=== PATIENT | female | born 1975 | race American Indian/Alaskan Native ===

== ENCOUNTER 2017-12-20 14:31 | Emergency (ER) | payer SELFPAY ==
--- NOTE | 2017-12-20 17:22 | Emergency Department Report ---
Blank Doc - Documentation Documentation: Patient is a 42-year-old [place] female with no known past medical history who is complaining of 3 weeks of joint swelling. Patient states that she initially has some swelling in her bilateral knees however this is resolved now she has swelling and edema to the left hand and pain and swelling to the right shoulder. Patient has decreased range of motion secondary to pain. Patient denies any trauma or fever at this time. Patient will have electrolytes done as well as CBC and patient will be reassessed by of a SUSAN
[2017-12-20 18:01] LABS: Bacteria,Urine 2+ /HPF (Negative); Bilirubin,Urine NEG (Negative); Blood,Urine MOD (Negative); Color,Urine Yellow (Yellow); Mucus,Urine FEW /HPF; Protein,Urine <15 mg/dL mg/dL (Negative); Urobilinogen,Urine < 2.0 mg/dL (<2.0); WBC,Urine < 1.0 /HPF (0.0-6.0)
[2017-12-20 18:27] LABS: Hematocrit 36.8 % (30.3-42.9); Hemoglobin 12.4 gm/dl (10.1-14.3); Mean Corpuscular HGB Conc 34 % (30-34); Mean Corpuscular Hemoglobin 27 pg (28-32); Mean Corpuscular Volume 82 fl (79-97); Platelet Count 343 K/mm3 (140-440); Red Blood Count 4.51 M/mm3 (3.65-5.03)
[2017-12-20 18:27] LABS: HCG Qualitative,Urine Negative (Negative)
[2017-12-20 19:09] LABS: Alanine Aminotransferase 11 units/L (7-56); BUN/Creatinine Ratio 37; Blood Urea Nitrogen 11 mg/dL (7-17); Calcium 9.6 mg/dL (8.4-10.2); Hemolysis Index 0
--- NOTE | 2017-12-20 19:17 | Emergency Department Report ---
ED General Adult HPI - General Chief complaint: Extremity Injury, Upper Stated complaint: RIGHT SHOULDER/LEFT HAND PAIN Time Seen by Provider: 12/20/17 17:17 Source: patient Mode of arrival: Ambulatory Limitations: No Limitations - History of Present Illness Initial comments: Patient is a 42-year-old [place] female with no known past medical history who is complaining of 3 weeks of joint swelling. Patient states that she initially has some swelling in her bilateral knees however this is resolved now she has swelling and edema to the left hand and pain and swelling to the right shoulder. Patient has decreased range of motion secondary to pain. Patient denies any trauma or fever at this time. -: month(s) (1) - Related Data Previous Rx's Medication Instructions Recorded Last Taken Type Docusate Sodium [Colace] 100 mg PO QDAY PRN #30 capsule 07/30/13 Unknown Rx Magnesium Citrate [Citrate of 10 oz PO ONCE PRN #10 oz 07/30/13 Unknown Rx Magnesia] Omeprazole [First-Omeprazole] 20 mg PO QDAY #30 ml 07/30/13 Unknown Rx Sulfamethoxazole/Trimethoprim 1 each PO BID #14 tablet 07/30/13 Unknown Rx [Bactrim DS] hydrOXYzine HCL [Atarax] 25 mg PO QHS PRN #20 tablet 07/12/16 Unknown Rx Ibuprofen [Motrin 800 MG tab] 800 mg PO Q8HR PRN #21 tablet 12/20/17 Unknown Rx predniSONE [Deltasone] 20 mg PO QDAY 4 Days #4 tab 12/20/17 Unknown Rx Allergies Allergy/AdvReac Type Severity Reaction Status Date / Time No Known Allergies Allergy Unverified 07/30/13 09:39 ED Review of Systems ROS: Stated complaint: RIGHT SHOULDER/LEFT HAND PAIN Other details as noted in HPI Constitutional: denies: chills, fever Eyes: denies: eye pain, eye discharge, vision change ENT: denies: ear pain, throat pain Respiratory: denies: cough, shortness of breath, wheezing Cardiovascular: denies: chest pain, palpitations Endocrine: no symptoms reported Gastrointestinal: denies: abdominal pain, nausea, diarrhea Genitourinary: denies: urgency, dysuria, discharge Musculoskeletal: joint swelling (bilateral knees resolved, right shoulder and left hand), arthralgia (right shoulder left hand). denies: back pain Skin: denies: rash, lesions Neurological: denies: headache, weakness, paresthesias Psychiatric: denies: anxiety, depression Hematological/Lymphatic: denies: easy bleeding, easy bruising ED Past Medical Hx - Past Medical History Previous Medical History?: No Additional medical history: abd pain with ectopic - Surgical History Additional Surgical History: exploratory lap 2002 - Social History Smoking Status: Current Every Day Smoker Substance Use Type: None - Medications Home Medications: Home Medications Medication Instructions Recorded Confirmed Last Taken Type Docusate Sodium [Colace] 100 mg PO QDAY PRN #30 capsule 07/30/13 Unknown Rx Magnesium Citrate [Citrate of 10 oz PO ONCE PRN #10 oz 07/30/13 Unknown Rx Magnesia] Omeprazole [First-Omeprazole] 20 mg PO QDAY #30 ml 07/30/13 Unknown Rx Sulfamethoxazole/Trimethoprim 1 each PO BID #14 tablet 07/30/13 Unknown Rx [Bactrim DS] hydrOXYzine HCL [Atarax] 25 mg PO QHS PRN #20 tablet 07/12/16 Unknown Rx Ibuprofen [Motrin 800 MG tab] 800 mg PO Q8HR PRN #21 tablet 12/20/17 Unknown Rx predniSONE [Deltasone] 20 mg PO QDAY 4 Days #4 tab 12/20/17 Unknown Rx ED Physical Exam - General Limitations: No Limitations General appearance: alert, in no apparent distress - Head Head exam: Present: atraumatic, normocephalic - Eye Eye exam: Present: normal appearance - ENT ENT exam: Present: mucous membranes moist - Neck Neck exam: Present: normal inspection - Respiratory Respiratory exam: Present: normal lung sounds bilaterally. Absent: respiratory distress - Cardiovascular Cardiovascular Exam: Present: regular rate, normal rhythm. Absent: systolic murmur, diastolic murmur, rubs, gallop - GI/Abdominal GI/Abdominal exam: Present: soft, normal bowel sounds - Expanded Upper Extremity Exam Left Shoulder Exam: Present: normal inspection, full ROM. Absent: tenderness, swelling Upper Arm exam: Present: normal inspection, full ROM. Absent: tenderness Elbow exam: Present: normal inspection, full ROM. Absent: tenderness, swelling Forearm Wrist exam: Present: normal inspection, full ROM. Absent: tenderness, swelling Hand Wrist exam: Present: normal inspection, full ROM (painful to move), tenderness, swelling Neuro motor exam: Present: wrist extension intact, thumb opposition intact, thumb IP flexion intact, thumb adduction intact, fingers 2-5 abduction intact Neurosensory exam: Present: radial nerve intact, ulnar nerve intact, median nerve intact Vascular: Present: normal capillary refill Right Shoulder Exam: Present: full ROM, tenderness, swelling, ecchymosis Upper Arm exam: Present: normal inspection, full ROM. Absent: tenderness Elbow exam: Present: normal inspection, full ROM. Absent: tenderness, swelling Forearm Wrist exam: Present: normal inspection, full ROM. Absent: tenderness Hand Wrist exam: Present: normal inspection, tenderness. Absent: full ROM - Back Exam Back exam: Present: normal inspection, full ROM - Neurological Exam Neurological exam: Present: alert, oriented X3 - Psychiatric Psychiatric exam: Present: normal affect, normal mood - Skin Skin exam: Present: warm, dry, intact, normal color. Absent: rash ED Course Vital Signs 12/20/17 14:59 Temperature 98.8 F Pulse Rate 82 Respiratory 16 Rate Blood Pressure 135/81 O2 Sat by Pulse 100 Oximetry ED Medical Decision Making - Lab Data Result diagrams: 12/20/17 18:01 - Radiology Data Patient has been evaluated by this provider as well as Dr. Angel. I discussed the patient that her labs are pretty much within normal limits did discuss the patient better off alkaline phosphatase is elevated. Discussed the patient she is to follow up with her doctor I will refer her to [facility] for possible workup for rheumatoid arthritis or other autoimmune diseases. Discussed the patient I will discharge her in ibuprofen 800 mg every 8 hours breakfast lunch and dinner and I will place on prednisone 20 mg by mouth for 4 days. Patient verbalized understanding Critical care attestation.: If time is entered above; I have spent that time in minutes in the direct care of this critically ill patient, excluding procedure time. ED Disposition Clinical Impression: Swelling of joint of left hand, Swelling of joint, shoulder, right, Elevated serum alkaline phosphatase level Disposition: - TO HOME OR SELFCARE Is pt being admited?: No Does the pt Need Aspirin: No Condition: Stable Additional Instructions: These take medication as prescribed and discussed. Very important for you to follow up with [facility] for further workup. I have listed their information below. Prescriptions: Ibuprofen [Motrin 800 MG tab] 800 mg PO Q8HR PRN #21 tablet PRN Reason: Pain , Severe (7-10) predniSONE [Deltasone] 20 mg PO QDAY 4 Days #4 tab Referrals: PRIMARY CARE, [Primary Care Provider] - 3-5 Days [facility] [Provider Group] - 3-5 Days Forms: Work/School Release Form(ED), Accompanied Note
[2017-12-20] MEDS ORDERED: TORADOL IM ONE (19:54)
[2017-12-20] MEDS ORDERED: DELTASONE PO ONE (19:54)
[2017-12-20 19:59] LABS: Band Neutrophils # (Manual) 0.5 K/mm3; Basophils % (Manual) 0 % (0.0-1.8); Giant Platelets Few; Hypochromasia 1+; Platelet Estimate Consistent w Auto; Total Cells Counted 100
[2017-12-20 20:13] VITALS: BP 138/80
== END 2017-12-20 20:15 | disposition home or self-care (01) ==
LOC: ED 14:31
DX: M25.511 Pain in right shoulder (principal); R74.8 Abnormal levels of other serum enzymes; M79.89 Other specified soft tissue disorders; F17.200 Nicotine dependence, unspecified, uncomplicated
CPT/HCPCS: 36415; 80053; 81001; 81025; 85007; 85025; 96372; 99283; J1885; J7512